=== PATIENT | female | born 1990 | race Caucasian/White ===

== ENCOUNTER 2016-12-31 20:57 | Observation (INO) | payer MEDICAID ==
[~2016-12-31] VITALS: Ht 152.4 cm; Wt 83.0 kg
[~2016-12-31 20:57] MED LIST: DESM0.1T2; DESM0.1T2 PO; DIAZ10TA4 PO; DOCU100C8 PO; GABA600T2 PO; GABA800T2 PO; KETO10TA PO; METR500T PO; OXYC-223 PO; OXYC-229 PO; OXYC20TA42 PO
[2016-12-31 21:20] LABS: DAU SCREEN DISCLAIMER
[2016-12-31] MEDS ORDERED: PROMETHAZINE 25 MG/ML, 1ML ONE (21:53)
[2016-12-31] MEDS ORDERED: LACTATED RINGERS 1,000 ML IVBOLUS ONE (22:00)
[2016-12-31] MEDS ORDERED: PROMETHAZINE 25 MG/ML, 1ML IM ONE (22:00)
[2016-12-31] MEDS ORDERED: D5%-LACTATED RINGERS 1,000 ML IV SCH (22:00)
[2016-12-31 22:41] LABS: BLOOD UREA NITROGEN 6 mg/dL (7-18)
[2016-12-31 22:59] LABS: HIV 1&2 ANTIBODY SCREEN Nonreactive (Nonreactive); HIV-1 p24 ANTIGEN Nonreactive (Nonreactive)
[2017-01-01] MEDS ORDERED: CEFTRIAXONE 1,000 MG in DEXTROSE 5% 50 ML IV SCH
[2017-01-01] MEDS ORDERED: NITROFURANTOIN (MACROBID) 100 MG CAPSULE ONE (00:11)
[2017-01-01] MEDS ORDERED: NITROFURANTOIN (MACROBID) 100 MG CAPSULE PO ONE (00:30)
== END 2017-01-01 00:20 | disposition home or self-care (01) ==
LOC: LDOP 20:57 → LDIP 22:15
PROVIDERS: ADMIT Student in an Organized Health Care Education/Training Program; ATTEND Student in an Organized Health Care Education/Training Program
DX: O26.893 Other specified pregnancy related conditions, third trimester (principal); M54.9 Dorsalgia, unspecified; Z3A.34 34 weeks gestation of pregnancy
CPT/HCPCS: 36415; 59025; 76770; 76805; 80048; 80307; 81001; 85025; 86592; 86703; 86762; 86850; 86900; 87086; 87340; 87899; 96360; 96361; G0378; J7120; 96372; G0435; J7121

== ENCOUNTER 2017-02-20 21:44 | Emergency (ER) | payer MEDICAID ==
[~2017-02-20] VITALS: Ht 152.4 cm; Wt 85.0 kg
[~2017-02-20 21:44] MED LIST changes: +DOCU-30 PO; +LABE200T3 PO; +NITR100C56 PO; +OXYC-302 PO
[2017-02-20] MEDS ORDERED: SODIUM CHLORIDE 0.9% 1,000ML IVBOLUS ONE (22:30)
[2017-02-20] MEDS ORDERED: SODIUM CHLORIDE FLUSH 10ML SYR IVF ONE (22:30)
[2017-02-20 22:55] LABS: ASPARTATE AMINO TRANSFERASE 18 U/L (15-37); BLOOD UREA NITROGEN 15 mg/dL (7-18)
[2017-02-20 23:02] LABS: HEMATOCRIT 34.2 % (34.6-47.8); HEMOGLOBIN 10.9 g/dL (11.7-16.4)
[2017-02-20 23:34] LABS: ANISOCYTOSIS 2+
[2017-02-20 23:36] LABS: MICROCYTOSIS 1+; OVALOCYTES 1+
[2017-02-20 23:37] LABS: LARGE PLATELETS 1+
[2017-02-21] MEDS ORDERED: HYDROmorphone 1 MG/ML, 1ML ONE (00:15)
[2017-02-21] MEDS: HYDROmorphone 1 MG/ML, 1ML IVPush PRN ×2 (00:17→01:26)
[2017-02-21] MEDS ORDERED: OMNIPAQUE 350 MG/ML, 100ML BOTTLE ONE (01:08)
[2017-02-21 03:25] VITALS: BP 135/92
== END 2017-02-21 03:34 | disposition home or self-care (01) ==
LOC: ED 23:26
DX: I88.0 Nonspecific mesenteric lymphadenitis (principal); R10.31 Right lower quadrant pain; R10.32 Left lower quadrant pain
CPT/HCPCS: 36415; 74177; 80053; 81003; 83605; 83690; 85025; 96361; 96374; 96376; 99285; J1170; J7030; Q9967

== ENCOUNTER 2017-07-13 00:10 | Emergency (ER) | payer MEDICAID ==
[~2017-07-13] VITALS: Ht 152.4 cm; Wt 85.0 kg
[~2017-07-13 00:10] MED LIST changes: +DOCU-131 PO; -DOCU-30 PO; +DOCU100C33 PO; -DOCU100C8 PO; -OXYC-223 PO; -OXYC-229 PO; +OXYC-306 PO; +OXYC-307 PO
[2017-07-13 01:24] LABS: MICROSCOPIC NOT IND
[2017-07-13 01:31] LABS: BASOPHILS # (AUTO) 0.02 x10^3/uL (0-0.1); BASOPHILS % (AUTO) 0 % (0-1); EOSINOPHILS # (AUTO) 0.17 x10^3/uL (0-0.4); EOSINOPHILS % (AUTO) 2 % (1-7); LYMPHOCYTES # (AUTO) 1.72 x10^3/uL (1-3.4); LYMPHOCYTES % (AUTO) 21 % (22-44); MD NO; MEAN CORPUSCULAR HEMOGLOBIN 26.8 pg (27.0-34.8); MEAN CORPUSCULAR HGB CONC 32.9 g/dL (32.4-35.8); MEAN CORPUSCULAR VOLUME 81.5 fL (80-100); MEAN PLATELET VOLUME 9.8 fL (7.4-10.4); MONOCYTES # (AUTO) 0.54 x10^3/uL (0.2-0.8); MONOCYTES % (AUTO) 7 % (2-9); NEUTROPHILS # (AUTO) 5.72 x10^3/uL (1.8-6.8); NEUTROPHILS % (AUTO) 70 % (42-75); PLATELET COUNT 241 x10^3/uL (130-400); RED BLOOD COUNT 4.35 x10^6/uL (3.82-5.3); RED CELL DISTRIBUTION WIDTH 13.1 % (9.6-15.2)
[2017-07-13 01:33] LABS: CULTURE INDICATED? NO
[2017-07-13 01:41] LABS: ALBUMIN 3.8 g/dL (3.4-5.0); ANION GAP 9 mmol/L (5-15); CALCIUM 9.1 mg/dL (8.5-10.1); CHLORIDE 106 mmol/L (98-107); CREATININE 0.77 mg/dL (0.55-1.02)
[2017-07-13] MEDS ORDERED: ACETAMINOPHEN 325 MG TABLET PO ONE (02:00)
[2017-07-13] MEDS ORDERED: ACETAMINOPHEN 325 MG TABLET ONE (02:07)
[2017-07-13 02:15] VITALS: BP 139/74
== END 2017-07-13 02:34 | disposition home or self-care (01) ==
LOC: ED 02:32
DX: N92.0 Excessive and frequent menstruation with regular cycle (principal)
CPT/HCPCS: 36415; 80048; 81003; 82040; 84703; 85025; 99284

== ENCOUNTER 2017-09-22 01:53 | Emergency (ER) | payer MEDICAID ==
[~2017-09-22] VITALS: Ht 152.4 cm; Wt 95.5 kg
[2017-09-22] MEDS ORDERED: HYDROmorphone 1 MG/ML, 1ML ONE ×2 (03:09→04:58)
[2017-09-22] MEDS ORDERED: METOCLOPRAMIDE 5 MG/ML, 2ML ONE (03:11)
[2017-09-22] MEDS ORDERED: PROCHLORPERAZINE 5 MG/ML, 2ML ONE (03:12)
[2017-09-22] MEDS ORDERED: SODIUM CHLORIDE FLUSH 10ML SYR IVF ONE (03:30)
[2017-09-22] MEDS ORDERED: PROCHLORPERAZINE 5 MG/ML, 2ML IVPush ONE (03:30)
[2017-09-22] MEDS ORDERED: HYDROmorphone 1 MG/ML, 1ML IVPush PRN (03:30)
[2017-09-22] MEDS ORDERED: SODIUM CHLORIDE 0.9% 1,000ML IVBOLUS ONE (03:30)
[2017-09-22 05:07] LABS: BASOPHILS # (AUTO) 0.03 x10^3/uL (0-0.1); BASOPHILS % (AUTO) 0 % (0-1); EOSINOPHILS # (AUTO) 0.27 x10^3/uL (0-0.4); EOSINOPHILS % (AUTO) 3 % (1-7); LYMPHOCYTES # (AUTO) 3.08 x10^3/uL (1-3.4); LYMPHOCYTES % (AUTO) 38 % (22-44); MD NO; MEAN CORPUSCULAR HEMOGLOBIN 23.9 pg (27.0-34.8); MEAN CORPUSCULAR HGB CONC 32.2 g/dL (32.4-35.8); MEAN CORPUSCULAR VOLUME 74.3 fL (80-100); MEAN PLATELET VOLUME 10.6 fL (7.4-10.4); MONOCYTES # (AUTO) 0.45 x10^3/uL (0.2-0.8); MONOCYTES % (AUTO) 6 % (2-9); NEUTROPHILS # (AUTO) 4.35 x10^3/uL (1.8-6.8); NEUTROPHILS % (AUTO) 53 % (42-75); PLATELET COUNT 293 x10^3/uL (130-400); RED BLOOD COUNT 4.68 x10^6/uL (3.82-5.3); RED CELL DISTRIBUTION WIDTH 15.1 % (9.6-15.2)
[2017-09-22 05:19] LABS: ALANINE AMINOTRANSFERASE 16 U/L (12-78); ALBUMIN 3.7 g/dL (3.4-5.0); ANION GAP 6 mmol/L (5-15); CALCIUM 9.2 mg/dL (8.5-10.1); CHLORIDE 111 mmol/L (98-107); CREATININE 0.95 mg/dL (0.55-1.02)
[2017-09-22 05:23] LABS: ALKALINE PHOSPHATASE 83 U/L (45-117); TOTAL PROTEIN 7.7 g/dL (6.4-8.2)
[2017-09-22 05:25] LABS: BILIRUBIN,TOTAL < 0.1 mg/dL (0.2-1.0)
[2017-09-22 05:48] VITALS: BP 117/67
== END 2017-09-22 05:49 | disposition home or self-care (01) ==
LOC: ED 03:01
DX: K80.50 Calculus of bile duct without cholangitis or cholecystitis without obstruction (principal); Z89.611 Acquired absence of right leg above knee; Z87.442 Personal history of urinary calculi
CPT/HCPCS: 36415; 76700; 80053; 83690; 84703; 85025; 96361; 96374; 96375; 99285; J0780; J1170; J7030

== ENCOUNTER 2017-10-17 18:38 | Emergency (ER) | payer MEDICAID ==
[~2017-10-17] VITALS: Ht 152.4 cm; Wt 96.5 kg
[2017-10-17] MEDS ORDERED: METOCLOPRAMIDE 5 MG/ML, 2ML IVPush ONE (19:00)
[2017-10-17] MEDS ORDERED: SODIUM CHLORIDE FLUSH 10ML SYR IVF ONE (19:00)
[2017-10-17] MEDS ORDERED: FAMOTIDINE 20 MG/2 ML IVP ONE (19:00)
[2017-10-17] MEDS ORDERED: HYDROmorphone 1 MG/ML, 1ML IV ONE (19:00)
[2017-10-17 19:17] LABS: BASOPHILS # (AUTO) 0.04 x10^3/uL (0-0.1); BASOPHILS % (AUTO) 0 % (0-1); EOSINOPHILS # (AUTO) 0.06 x10^3/uL (0-0.4); EOSINOPHILS % (AUTO) 1 % (1-7); LYMPHOCYTES % (AUTO) 22 % (22-44); MD NO; MEAN CORPUSCULAR HEMOGLOBIN 22.9 pg (27.0-34.8); MEAN CORPUSCULAR HGB CONC 31.9 g/dL (32.4-35.8); MEAN CORPUSCULAR VOLUME 71.9 fL (80-100); MEAN PLATELET VOLUME 10.5 fL (7.4-10.4); MONOCYTES % (AUTO) 4 % (2-9); NEUTROPHILS # (AUTO) 8.53 x10^3/uL (1.8-6.8); NEUTROPHILS % (AUTO) 74 % (42-75); PLATELET COUNT 346 x10^3/uL (130-400); RED BLOOD COUNT 4.82 x10^6/uL (3.82-5.3); RED CELL DISTRIBUTION WIDTH 16.9 % (9.6-15.2)
[2017-10-17 19:30] LABS: ALANINE AMINOTRANSFERASE 19 U/L (12-78); ALBUMIN 3.8 g/dL (3.4-5.0); ANION GAP 9 mmol/L (5-15); CALCIUM 8.8 mg/dL (8.5-10.1); CHLORIDE 108 mmol/L (98-107); CREATININE 0.94 mg/dL (0.55-1.02)
[2017-10-17 19:35] LABS: ALKALINE PHOSPHATASE 92 U/L (45-117); BILIRUBIN,TOTAL 0.3 mg/dL (0.2-1.0); TOTAL PROTEIN 8.2 g/dL (6.4-8.2)
[2017-10-17] MEDS ORDERED: FAMOTIDINE 20 MG/2 ML ONE (19:49)
[2017-10-17] MEDS ORDERED: HYDROmorphone 2 MG/ML, 1ML ONE (19:49)
[2017-10-17] MEDS ORDERED: METOCLOPRAMIDE 5 MG/ML, 2ML ONE (19:49)
[2017-10-17 22:09] VITALS: BP 134/95
== END 2017-10-17 22:12 | disposition home or self-care (01) ==
LOC: ED 20:12
DX: R10.11 Right upper quadrant pain (principal); R11.2 Nausea with vomiting, unspecified; R19.7 Diarrhea, unspecified; D68.0 Von Willebrand disease; I10 Essential (primary) hypertension; Z86.718 Personal history of other venous thrombosis and embolism; Z90.49 Acquired absence of other specified parts of digestive tract
CPT/HCPCS: 36415; 76700; 80053; 83690; 84703; 85025; 96374; 96375; 99285; J1170; J2765; S0028